=== PATIENT | male | born 1945 | race Caucasian/White ===

== ENCOUNTER 2020-07-07 02:31 | Emergency (ER) | payer SELFPAY ==
[~2020-07-07] VITALS: Ht 172.7 cm; Wt 83.9 kg
[2020-07-07 02:33] VITALS: BP 144/84
--- NOTE | 2020-07-07 02:33 | NUR ---
[facility] BATRES AND TAKEN TO [facility]IR B
--- NOTE | 2020-07-07 02:42 | NUR ---
PATIENT BIB [facility]. PATIENT EXAMINED BY DR. BERRY. PATIENT MEDICALLY CLEARED AND RELEASED IN CUSTODY IN STABLE CONDITION. ORIGINAL PRE-BOOK FORM GIVEN TO OFFICER [facility] #[id number].
== END 2020-07-07 02:42 ==
LOC: MED 02:31
DX: Z04.1 Encounter for examination and observation following transport accident (principal); Z02.89 Encounter for other administrative examinations; V89.2XXA Person injured in unspecified motor-vehicle accident, traffic, initial encounter; Y93.89 Activity, other specified; Y92.89 Other specified places as the place of occurrence of the external cause; Y99.8 Other external cause status
CPT/HCPCS: 99283